=== PATIENT | female | born 1960 | race Caucasian/White ===

== ENCOUNTER 2017-10-23 11:33 | Day surgery (SDC) | payer BC, OTHER ==
[~2017-10-23] VITALS: Ht 157.5 cm; Wt 65.4 kg
[~2017-10-23 11:33] MED LIST: ASPI325B; ASPI81EC; ATOR40TA; BIRTHCONTROL; BUPR150T2; CALCIUM PO; CEPH250SUA PO; CHLCLI; CITA20 PO; CLON.5; CLON1 PO; CYAN500; CYCL10 PO; Cardizem Cd180 MG PO; DIAZ2; DILT360ER; DIPY75 PO; FISH1000; GLUC500; GLUCHON; HYDACE10B PO; HYDACE5; HYDACE5 PO; HYDMOR2 PO; ISOMON60ER PO; ISOSORBIDE MONONITRA PO; LAMO100 PO; LOSA50 PO; LOVA20 PO; LOVA40; MAGCIT300 PO; META800 PO; MSM1000; NAPR500 PO; NIAC500ER; NIFE30ER; NIFE90ER; NITR.3TP TOP; NITR.4SL; NITR.4SL SL; NITRSPRAY SL; OLAN2.5; OMEP20ER; OMEP20ER PO; ONDA4 PO; ONDA4ODT MM; OXYC5 PO; PANT40; PERCOCET 10/325MG PO; PIOG15 PO; RXHYDACE PO; SIMV20 PO; SIMV40 PO; URSO300 PO; VICODIN PO; VITAMIN B 1 PO; VITAMIN D
[2017-10-23] MEDS ORDERED: BUSP10 PO (12:31)
[2017-10-23] MEDS ORDERED: HYDHCL25 PO (12:32)
[2017-10-23] MEDS ORDERED: MIRT15 PO (12:32)
[2018-07-23] MEDS ORDERED: Isosorbide Mono60 MG PO (10:26)
[2018-07-23] MEDS ORDERED: LOSARTAN POTAS100 MG PO (10:56)
[2018-07-23] MEDS ORDERED: OMEPRAZOLE MAGN20 MG PO (11:01)
[2018-07-23] MEDS ORDERED: ATOR10 PO (11:02)
== END 2017-10-23 13:33 | disposition home or self-care (01) ==
LOC: ORSCSDS 11:33
PROVIDERS: Internal Medicine Gastroenterology
PROC: 0DB68ZX Excision of Stomach, Via Natural or Artificial Opening Endoscopic, Diagnostic (ICD-10-PCS; principal; 2017-10-23 12:45)
DX: R10.9 Unspecified abdominal pain (principal); G47.33 Obstructive sleep apnea (adult) (pediatric); K22.4 Dyskinesia of esophagus; K91.1 Postgastric surgery syndromes; I10 Essential (primary) hypertension; I20.1 Angina pectoris with documented spasm; F41.8 Other specified anxiety disorders; I25.2 Old myocardial infarction; E03.9 Hypothyroidism, unspecified; E78.5 Hyperlipidemia, unspecified; Z98.84 Bariatric surgery status; F17.210 Nicotine dependence, cigarettes, uncomplicated; Z79.899 Other long term (current) drug therapy
CPT/HCPCS: 88305; 88342; J2250; J7120

== ENCOUNTER 2018-01-22 01:59 | Emergency (ER) | payer BC, OTHER ==
[~2018-01-22] VITALS: Ht 157.5 cm; Wt 67.6 kg
[~2018-01-22 01:59] MED LIST changes: +BUSP10 PO; -Cardizem Cd180 MG PO; +DILT300 PO; +HYDHCL25 PO; +MIRT15 PO
== END 2018-01-22 05:15 | disposition home or self-care (01) ==
LOC: ER 01:59
DX: T74.11XA Adult physical abuse, confirmed, initial encounter (principal); S80.01XA Contusion of right knee, initial encounter; Y04.2XXA Assault by strike against or bumped into by another person, initial encounter; Z88.5 Allergy status to narcotic agent; Z88.8 Allergy status to other drugs, medicaments and biological substances; Z88.0 Allergy status to penicillin; Z79.899 Other long term (current) drug therapy; F17.200 Nicotine dependence, unspecified, uncomplicated
CPT/HCPCS: 73562-RT; J1885

== ENCOUNTER → 2018-03-03 | Outpatient (CLI) | payer BC, OTHER | END | disposition home or self-care (01) | LOC: LAB 11:28 → LAB FUT 02-20 15:10 | DX: R19.7 Diarrhea, unspecified (principal) | CPT/HCPCS: 87493 ==

== ENCOUNTER → 2022-03-13 | Outpatient (CLI) | payer BC, OTHER ==
[~2022-03-13] MED LIST changes: +ATOR10 PO; +Cardizem Cd180 MG PO; -DILT300 PO; +Isosorbide Mono60 MG PO; +LOSARTAN POTAS100 MG PO; +OMEPRAZOLE MAGN20 MG PO
[2022-03-13 14:43] LABS: Adenovirus F 40/41 Not Detected (NOT DETECT); Astrovirus Not Detected (NOT DETECT); Campylobacter Sp Detected (NOT DETECT); Cryptosporidium Not Detected (NOT DETECT); Cyclospora Cayetanensis Not Detected (NOT DETECT); E. Coli O157 Not Detected (NOT DETECT); Entamoeba Histolytica Not Detected (NOT DETECT); Enteroaggregative E. coli-EAEC Not Detected (NOT DETECT); Enteropathogenic E. coli-EPEC Not Detected (NOT DETECT); Enterotoxigenic E. coli-ETEC Not Detected (NOT DETECT); Giardia Lamblia Not Detected (NOT DETECT); Norovirus GI/GII Not Detected (NOT DETECT); Plesiomonas Shigelloides Not Detected (NOT DETECT); Rotavirus A Not Detected (NOT DETECT); Salmonella Sp Not Detected (NOT DETECT); Sapovirus Not Detected (NOT DETECT); Shiga Toxin-prod E. coli-STEC Not Detected (NOT DETECT); Shigella/Enteroin E. coli-EIEC Not Detected (NOT DETECT); Vibrio Cholerae Not Detected (NOT DETECT); Vibrio Sp Not Detected (NOT DETECT); Yersinia Enterocolitica Not Detected (NOT DETECT)
== END | disposition home or self-care (01) ==
LOC: LAB 11:20 → LAB SHORT 11:20
PROVIDERS: Physician Assistant
DX: R19.7 Diarrhea, unspecified (principal)
CPT/HCPCS: 87507

== ENCOUNTER → 2022-03-13 | Outpatient (CLI) | payer BC, OTHER ==
[2022-03-13 10:12] LABS: Hematocrit 39.4 % (33.0-51.0); Hemoglobin 13.4 g/dL (11.5-16.0); Mean Corpuscular HGB 32.2 pg (26.0-34.0); Mean Corpuscular Volume 95 fL (80-100); Mean Platelet Volume 9.7 fL (9.1-12.4); Platelet Count 183 K/mm3 (150-400); RDW Coefficient Variation 14.6 % (11.7-14.2); RDW Standard Deviation 50.8 fL (35.1-46.3); Red Blood Cell Count 4.16 M/mm3 (3.80-5.20); White Blood Cell Count 7.58 K/mm3 (4.00-11.30)
[2022-03-13 10:22] LABS: Albumin/Globulin Ratio 0.8 (0.8-1.8); Bilirubin, Total 0.5 mg/dL (0.1-1.0); Bun/Creatinine Ratio 11.4 (12.0-20.0); Calcium, Blood 9.2 mg/dL (8.5-10.1); Creatinine, Blood 1.32 mg/dL (0.40-1.00); Globulin, Blood 3.7 g/dL (2.2-4.0); Potassium, Blood 3.3 mmol/L (3.5-5.5); Total Protein, Blood 6.7 g/dL (6.4-8.2)
[2022-03-13 10:34] LABS: BAND PERCENT MAN 41 % (0-8); BASOPHILS PERCENT MAN 0 % (0-2); EOSINOPHILS PERCENT MAN 0 % (0-6); LYMPHOCYTES ABSOLUTE MAN 1.66 K/mm3 (0.84-5.20); LYMPHOCYTES PERCENT MAN 22 % (21-46); MONOCYTES ABSOLUTE MAN 1.28 K/mm3 (0.16-1.47); MONOCYTES PERCENT MAN 17 % (4-13); NEUTROPHILS ABSOLUTE MAN 4.62 K/mm3 (1.96-9.15); SEG NEUTROPHILS PERCENT MAN 20 % (41-73); TOTAL CELLS COUNTED 100
== END | disposition home or self-care (01) ==
LOC: LAB 10:07 → LAB SHORT 10:07
PROVIDERS: Physician Assistant
DX: R10.9 Unspecified abdominal pain (principal); R31.9 Hematuria, unspecified
CPT/HCPCS: 80053; 83690; 85025; 87086

== ENCOUNTER → 2023-12-23 | Outpatient (CLI) | payer BC, OTHER ==
[2023-12-23 19:37] LABS: BASOPHILS ABSOLUTE AUTO 0.04 K/mm3 (0.00-0.23); BASOPHILS PERCENT AUTO 1 % (0-2); EOSINOPHILS ABSOLUTE AUTO 0.11 K/mm3 (0.00-0.68); EOSINOPHILS PERCENT AUTO 2 % (0-6); Hematocrit 34.8 % (33.0-51.0); Hemoglobin 10.7 g/dL (11.5-16.0); IMMATURE GRAN ABSOLUTE AUTO 0.02 K/mm3 (0.00-0.10); IMMATURE GRAN PERCENT AUTO 0 % (0-1); LYMPHOCYTES ABSOLUTE AUTO 2.08 K/mm3 (0.84-5.20); LYMPHOCYTES PERCENT AUTO 35 % (21-46); MONOCYTES ABSOLUTE AUTO 0.71 K/mm3 (0.16-1.47); MONOCYTES PERCENT AUTO 12 % (4-13); Mean Corpuscular HGB 26.5 pg (26.0-34.0); Mean Corpuscular HGB Conc 30.7 g/dL (31.5-36.5); Mean Corpuscular Volume 86 fL (80-100); Mean Platelet Volume 10.8 fL (9.1-12.4); NEUTROPHILS ABSOLUTE AUTO 3.05 K/mm3 (1.96-9.15); NEUTROPHILS PERCENT AUTO 51 % (41-73); Platelet Count 176 K/mm3 (150-400); RDW Coefficient Variation 26.5 % (11.7-14.2); RDW Standard Deviation 78.6 fL (35.1-46.3); Red Blood Cell Count 4.04 M/mm3 (3.80-5.20); White Blood Cell Count 6.01 K/mm3 (4.00-11.30)
[2023-12-24 12:18] LABS: Stool Occult Bld Immuno 1 Negative (NEGATIVE)
[2023-12-25 11:09] LABS: FERRITIN 22 ng/mL (15-150)
[2023-12-25 22:10] LABS: IRON BIND.CAP.(TIBC) 449 ug/dL (250-450); IRON SATURATION 5 % (15-55); IRON, SERUM 24 ug/dL (27-139); UIBC 425 ug/dL (118-369)
== END | disposition home or self-care (01) ==
LOC: LAB 15:25 → LAB SHORT 15:25
PROVIDERS: Family Medicine
DX: D50.9 Iron deficiency anemia, unspecified (principal)
CPT/HCPCS: 82274; 82607; 82728; 82746; 83540; 83550; 85025

== ENCOUNTER → 2023-12-24 | Outpatient (CLI) | payer BC, OTHER ==
[2023-12-25 23:10] LABS: IRON BIND.CAP.(TIBC) 402 ug/dL (250-450); IRON SATURATION 8 % (15-55); IRON, SERUM 34 ug/dL (27-139); UIBC 368 ug/dL (118-369)
[2023-12-26 00:10] LABS: FERRITIN 28 ng/mL (15-150)
== END | disposition home or self-care (01) ==
LOC: LAB 12:00 → LAB SHORT 12:00
PROVIDERS: Family Medicine
DX: D50.9 Iron deficiency anemia, unspecified (principal)
CPT/HCPCS: 82728; 83540; 83550

== ENCOUNTER → 2024-08-27 | Outpatient (CLI) | payer BC, OTHER ==
[2024-08-27 16:14] LABS: BASOPHILS ABSOLUTE AUTO 0.05 K/mm3 (0.00-0.23); BASOPHILS PERCENT AUTO 1 % (0-2); EOSINOPHILS ABSOLUTE AUTO 0.11 K/mm3 (0.00-0.68); EOSINOPHILS PERCENT AUTO 2 % (0-6); Hematocrit 43.6 % (33.0-51.0); IMMATURE GRAN ABSOLUTE AUTO 0.01 K/mm3 (0.00-0.10); IMMATURE GRAN PERCENT AUTO 0 % (0-1); LYMPHOCYTES PERCENT AUTO 34 % (21-46); MONOCYTES PERCENT AUTO 10 % (4-13); Mean Corpuscular HGB 37.2 pg (26.0-34.0); Mean Corpuscular HGB Conc 34.4 g/dL (31.5-36.5); Mean Corpuscular Volume 108 fL (80-100); Mean Platelet Volume 11.2 fL (9.1-12.4); NEUTROPHILS ABSOLUTE AUTO 2.61 K/mm3 (1.96-9.15); NEUTROPHILS PERCENT AUTO 53 % (41-73); Platelet Count 124 K/mm3 (150-400); RDW Coefficient Variation 12.4 % (11.7-14.2); RDW Standard Deviation 49.8 fL (35.1-46.3); Red Blood Cell Count 4.03 M/mm3 (3.80-5.20); White Blood Cell Count 4.98 K/mm3 (4.00-11.30)
[2024-08-28 14:46] LABS: ERYTHROPOIETIN 17 mU/mL (4-27)
== END ==
LOC: LAB 15:02 → LAB SHORT 15:02
PROVIDERS: Nurse Practitioner Family
DX: D64.9 Anemia, unspecified (principal)
CPT/HCPCS: 82607; 82668; 82746; 83540; 83550; 85025

== ENCOUNTER 2024-12-08 12:42 | Day surgery (SDC) | payer OTHER ==
[~2024-12-08] VITALS: Ht 154.9 cm; Wt 71.8 kg
[~2024-12-08 12:42] MED LIST changes: +Atropine Sulfate 0.1 MG/ML 10ML SYR ONE; +BREZTRI AEROS10.7 GM INH; +DIAZ5 PO; +Glycopyrrolate 0.2 MG/ML 1MLVIAL ONE; +Lidocaine 2% 5 ML SDV ONE; +Lidocaine HCl/Pf 1% 5 ML VIAL ONE; +Methylene Blue 1% 100 MG/10 ML VIAL ONE; +NITRO-DUR1 EAC1 TD; +Ondansetron HCl 2 MG / ML 2ML Vial ONE; +XOPENEX HFA15 GM INH; +ePHEDrine Sulfate 50 MG/ML 1ML Injection ONE
[2024-12-08] MEDS ORDERED: DODEX1000 MCG/3 (14:04)
[2024-12-08] MEDS ORDERED: XOPENEX HFA15 GM (14:05)
[2024-12-08] MEDS ORDERED: Benzocaine Oral Spray 0.5ML UD ONE (14:06)
[2024-12-08] MEDS ORDERED: propofoL 50 ML IV ONE ×2 (15:07→15:55)
[2024-12-08] MEDS ORDERED: Lactated Ringer's 1,000 ML IV ONE (15:17)
[2024-12-08 17:26] VITALS: BP 118/81
--- NOTE | 2024-12-08 17:32 | NUR ---
12/08/241731 Carol العلي PT IS SITTING UP IN BED DRINKING APPLE JUICE W/O DIFFICULTY AND SPEAKING TO HER SILVIA. PT DENIES PAIN, DIZZINESS, OR SOB, AND STATED SHE IS READY TO GO EAT. PT DRESSED IN ROOM ON HER OWN WITH HER IN THE ROOM AND THIS RN WHEELED PT OUT TO HER CAR WHERE PT PICKED PT UP.
--- NOTE | 2024-12-08 18:06 | NUR ---
12/08/24 1806 SeverianoCarol UPPER ENDOSCOPY STARTED BY AT 1527. PT OXYGEN SATS STARTED DROPPING IN THE 80'S. THIS RN STARTED A CHIN LIFT, PT SATS CONTINUED TO DROP REACHING IN THE 70'S, PLACED AN LMA AND USED THE AMBU BAG. PT OXYGEN SATS RISING BACK INTO THE 90'S. PT OPENED HER EYES AND LMA WAS REMOVED. PT BREATHING ON HER OWN WITH POM MASK ON SET AT 10L O2. PT O2 SATS BACK INTO THE UPPER 90'S. RESTARTED THE UPPER ENDOSCOPY AT 1536 WITHOUT COMPLICATIONS. COLONOSCOPY WAS COMPLETED W/O COMPLICATIONS. PT AWOKE AT 1635.
== END 2024-12-08 17:20 | disposition home or self-care (01) ==
LOC: ORSCSDS 12:42
PROVIDERS: Internal Medicine Gastroenterology
PROC: 0DBN8ZX Excision of Sigmoid Colon, Via Natural or Artificial Opening Endoscopic, Diagnostic (ICD-10-PCS; principal; 2024-12-08 14:15)
PROC: 0DBL8ZX Excision of Transverse Colon, Via Natural or Artificial Opening Endoscopic, Diagnostic (ICD-10-PCS; principal; 2024-12-08 14:15)
PROC: 0DBH8ZX Excision of Cecum, Via Natural or Artificial Opening Endoscopic, Diagnostic (ICD-10-PCS; principal; 2024-12-08 14:15)
PROC: 0DB78ZX Excision of Stomach, Pylorus, Via Natural or Artificial Opening Endoscopic, Diagnostic (ICD-10-PCS; principal; 2024-12-08 14:15)
PROC: 0DBM8ZX Excision of Descending Colon, Via Natural or Artificial Opening Endoscopic, Diagnostic (ICD-10-PCS; principal; 2024-12-08 14:15)
DX: R10.31 Right lower quadrant pain (principal); D50.9 Iron deficiency anemia, unspecified; D12.3 Benign neoplasm of transverse colon; D12.0 Benign neoplasm of cecum; D12.4 Benign neoplasm of descending colon; D12.5 Benign neoplasm of sigmoid colon; Z80.0 Family history of malignant neoplasm of digestive organs; Z98.84 Bariatric surgery status; Z86.0100 Personal history of colon polyps, unspecified; F50.83 Pica in adults; I12.9 Hypertensive chronic kidney disease with stage 1 through stage 4 chronic kidney disease, or unspecified chronic kidney disease; N18.30 Chronic kidney disease, stage 3 unspecified; J44.9 Chronic obstructive pulmonary disease, unspecified; E78.5 Hyperlipidemia, unspecified; F31.9 Bipolar disorder, unspecified; F41.9 Anxiety disorder, unspecified; F43.10 Post-traumatic stress disorder, unspecified; Z79.899 Other long term (current) drug therapy; F17.210 Nicotine dependence, cigarettes, uncomplicated; G47.33 Obstructive sleep apnea (adult) (pediatric)
CPT/HCPCS: 88305; 88342; A9270; J0461; J2003; J2405; J2704; Q9968

== ENCOUNTER 2025-08-02 07:04 | Day surgery (SDC) | payer OTHER ==
[2025-08-02] VITALS (9 sets, daily range): BP systolic 108–137; BP diastolic 66–87
[~2025-08-02] VITALS: Ht 152.4 cm; Wt 73.8 kg
[~2025-08-02 07:04] MED LIST changes: -Atropine Sulfate 0.1 MG/ML 10ML SYR ONE; +DODEX1000 MCG/3; -Glycopyrrolate 0.2 MG/ML 1MLVIAL ONE; +LAMO25; -Lidocaine 2% 5 ML SDV ONE; -Lidocaine HCl/Pf 1% 5 ML VIAL ONE; -Methylene Blue 1% 100 MG/10 ML VIAL ONE; -Ondansetron HCl 2 MG / ML 2ML Vial ONE; +XOPENEX HFA15 GM; -ePHEDrine Sulfate 50 MG/ML 1ML Injection ONE
[2025-08-02] MEDS ORDERED: CeFAZolin Sodium 2,000 MG in NS 100 ML IV SCH (08:00)
[2025-08-02] MEDS ORDERED: Dexamethasone Sod Phos 10 MG/ML 1ML VIAL ONE (08:00)
[2025-08-02] MEDS ORDERED: FentaNYL Citrate 50 MCG/ML 2 ML Injection ONE ×2 (08:00→11:42)
[2025-08-02] MEDS ORDERED: Ondansetron HCl 2 MG / ML 2ML Vial ONE (08:00)
[2025-08-02] MEDS ORDERED: Metoclopramide HCl 5MG / ML 2ML Vial IV ONE (08:15)
[2025-08-02] MEDS ORDERED: Citric Acid/Sodium Citrate 30 ML BTL PO ONE (08:15)
[2025-08-02] MEDS ORDERED: Bupivacaine 0.5% Inj 10 ML Vial ONE ×3 (10:06→11:38)
[2025-08-02] MEDS ORDERED: LOSARTAN POTAS100 M1 PO (10:26)
[2025-08-02] MEDS ORDERED: GABAPENTIN600 MG PO (10:26)
[2025-08-02] MEDS ORDERED: Phenergan25 M1 PO (10:28)
[2025-08-02] MEDS ORDERED: ePHEDrine Sulfate 50 MG/ML 1ML Injection ONE (10:49)
[2025-08-02] MEDS ORDERED: Phenylephrine HCl 100 MCG/ML-NS 10MLSYR (1MG/10ML) ONE (11:11)
[2025-08-02] MEDS ORDERED: HYDROmorphone HCl/Pf 1MG SYR IV PRN ×2 (11:25→11:30)
[2025-08-02] MEDS ORDERED: HydrALAZINE HCl 20 MG / ML 1ML Vial IV PRN (11:25)
[2025-08-02] MEDS ORDERED: FentaNYL Citrate 50 MCG/ML 2 ML Injection IV PRN ×2 (11:30)
[2025-08-02] MEDS ORDERED: ePHEDrine Sulfate 50 MG/ML 1ML Injection IV PRN (11:30)
[2025-08-02] MEDS ORDERED: Ondansetron HCl 2 MG / ML 2ML Vial IV PRN (11:30)
[2025-08-02] MEDS ORDERED: Midazolam HCl 1MG / ML 2ML Vial ONE (11:41)
[2025-08-02] MEDS ORDERED: HYDROcodone 5-APAP 325 TAB PO PRN (12:30)
--- NOTE | 2025-08-02 13:39 | NUR ---
Patient up to Ambulate independently. Gait steady. Discharge instructions reviewed with patient. Patient verbalizes understanding. Copy given to patient to take home, [facility]. Patient States Post-Procedure ride home has been arranged. Discharged via wheelchair to private car for ride home. PT REPORTS PAIN TOLERABLE. TOLERATING PO. DRESSINGS C/D/I. REPORTS READY TO GO HOME.
== END 2025-08-02 13:40 | disposition home or self-care (01) ==
LOC: ORSCMMR 07:04 → ORD 08:30 → ORSCMMR 13:40
PROVIDERS: Surgery
PROC: B544ZZA Ultrasonography of Left Jugular Veins, Guidance (ICD-10-PCS; principal; 2025-08-02 10:30)
PROC: 05HN33Z Insertion of Infusion Device into Left Internal Jugular Vein, Percutaneous Approach (ICD-10-PCS; principal; 2025-08-02 10:30)
PROC: 0JH63WZ Insertion of Totally Implantable Vascular Access Device into Chest Subcutaneous Tissue and Fascia, Percutaneous Approach (ICD-10-PCS; principal; 2025-08-02 10:30)
DX: C83.09 Small cell B-cell lymphoma, extranodal and solid organ sites (principal); I12.9 Hypertensive chronic kidney disease with stage 1 through stage 4 chronic kidney disease, or unspecified chronic kidney disease; N18.9 Chronic kidney disease, unspecified; K21.9 Gastro-esophageal reflux disease without esophagitis; I25.10 Atherosclerotic heart disease of native coronary artery without angina pectoris; E78.5 Hyperlipidemia, unspecified; J44.9 Chronic obstructive pulmonary disease, unspecified; F17.210 Nicotine dependence, cigarettes, uncomplicated; Z79.899 Other long term (current) drug therapy; E66.9 Obesity, unspecified; Z68.33 Body mass index [BMI] 33.0-33.9, adult; F31.9 Bipolar disorder, unspecified; F43.10 Post-traumatic stress disorder, unspecified
CPT/HCPCS: 77001; A9270; C1788; J0690; J1100; J1642; J2250; J2371; J2405; J2704; J2765; J3010; J7120

== ENCOUNTER → 2025-08-11 | Outpatient (CLI) | payer OTHER ==
[~2025-08-11] MED LIST changes: +DICY20 PO; +GABAPENTIN600 MG PO; +LOSARTAN POTAS100 M1 PO; +Phenergan25 M1 PO
[2025-08-11 10:08] LABS: BASOPHILS ABSOLUTE AUTO 0.04 K/mm3 (0.00-0.23); BASOPHILS PERCENT AUTO 1 % (0-2); EOSINOPHILS ABSOLUTE AUTO 0.15 K/mm3 (0.00-0.68); EOSINOPHILS PERCENT AUTO 2 % (0-6); Hematocrit 40.2 % (33.0-51.0); Hemoglobin 14.5 g/dL (11.5-16.0); IMMATURE GRAN ABSOLUTE AUTO 0.09 K/mm3 (0.00-0.10); IMMATURE GRAN PERCENT AUTO 1 % (0-1); LYMPHOCYTES ABSOLUTE AUTO 0.49 K/mm3 (0.84-5.20); LYMPHOCYTES PERCENT AUTO 6 % (21-46); MONOCYTES ABSOLUTE AUTO 0.91 K/mm3 (0.16-1.47); MONOCYTES PERCENT AUTO 11 % (4-13); Mean Corpuscular HGB Conc 36.1 g/dL (31.5-36.5); Mean Corpuscular Volume 106 fL (80-100); NEUTROPHILS ABSOLUTE AUTO 6.54 K/mm3 (1.96-9.15); NEUTROPHILS PERCENT AUTO 80 % (41-73); NRBC ABSOLUTE 0.00 K/mm3 (0.00-0.02); NRBC Auto 0.0 /100 WBC (0.0-0.2); Platelet Count 142 K/mm3 (150-400); RDW Coefficient Variation 12.7 % (11.7-14.2); RDW Standard Deviation 48.8 fL (35.1-46.3)
[2025-08-11 10:23] LABS: Alanine Aminotransfer (ALT/SGP 66.0 U/L (12-78); Albumin, Blood 3.6 g/dL (3.4-5.0); Albumin/Globulin Ratio 0.8 (0.8-1.8); Anion Gap 13.0 mmol/L (6-16); Aspartate Aminotrans (AST/SGOT 30.0 U/L (12-37); Bilirubin, Total 1.2 mg/dL (0.1-1.0); Blood Urea Nitrogen 16.0 mg/dL (8-24); CO2, Blood 26.0 mmol/L (21-32); Calcium, Blood 9.5 mg/dL (8.5-10.1); Chloride, Blood 102.0 mmol/L (98-108); Creatinine, Blood 0.9 mg/dL (0.40-1.00); Globulin, Blood 4.3 g/dL (2.2-4.0); Glucose, Blood 116.0 mg/dL (70-99); Potassium, Blood 4.2 mmol/L (3.5-5.5); Sodium, Blood 137.0 mmol/L (136-145); Total Protein, Blood 7.9 g/dL (6.4-8.2)
[2025-08-11 10:41] LABS: BASOPHILS ABSOLUTE MAN 0.08 K/mm3 (0.00-0.23); BASOPHILS PERCENT MAN 1 % (0-2); EOSINOPHILS ABSOLUTE MAN 0.00 K/mm3 (0.00-0.68); EOSINOPHILS PERCENT MAN 0 % (0-6); LYMPHOCYTES ABSOLUTE MAN 0.49 K/mm3 (0.84-5.20); LYMPHOCYTES PERCENT MAN 6 % (21-46); MONOCYTES ABSOLUTE MAN 0.90 K/mm3 (0.16-1.47); MONOCYTES PERCENT MAN 11 % (4-13); NEUTROPHILS ABSOLUTE MAN 6.74 K/mm3 (1.96-9.15); SEG NEUTROPHILS PERCENT MAN 82 % (41-73)
== END ==
LOC: LAB 10:04 → LAB SHORT 10:04
PROVIDERS: Physician Assistant
DX: R10.31 Right lower quadrant pain (principal)
CPT/HCPCS: 80053; 83690; 85025

== ENCOUNTER 2025-08-18 00:08 | Emergency (ER) | payer OTHER ==
[~2025-08-18] VITALS: Ht 152.4 cm; Wt 73.9 kg
[~2025-08-18 00:08] MED LIST changes: -DICY20 PO
[2025-08-18] MEDS ORDERED: Ketorolac Tromethamine 30mg Vial IV ONE (00:45)
[2025-08-18 00:48] LABS: Source, Urine Clean Catch
[2025-08-18 00:54] LABS: Bilirubin, Urine Neg (Neg); Glucose Qualitative, Urine Neg (Neg); Ketones, Urine Neg (Neg); Leukocyte Esterase, Urine Neg (Neg); Protein, Urine 2+ (Neg); Specific Gravity, Urine 1.010 (1.003-1.022); Urobilinogen, Urine NORM (Normal)
[2025-08-18 01:04] LABS: Color, Urine Pale Yellow (P-Yellow)
[2025-08-18 01:05] LABS: Red Blood Cells, Urine 0-2 /hpf (0-2); White Blood Cells, Urine 0-2 /hpf (0-5)
[2025-08-18 01:12] LABS: Hematocrit 36.9 % (33.0-51.0); Hemoglobin 13.0 g/dL (11.5-16.0); Mean Corpuscular HGB Conc 35.2 g/dL (31.5-36.5); Mean Corpuscular Volume 110 fL (80-100); NRBC ABSOLUTE 0.00 K/mm3 (0.00-0.02); NRBC Auto 0.0 /100 WBC (0.0-0.2); Platelet Count 99 K/mm3 (150-400); RDW Coefficient Variation 13.2 % (11.7-14.2); RDW Standard Deviation 53.1 fL (35.1-46.3)
[2025-08-18 01:28] LABS: Magnesium, Blood 2.3 mg/dL (1.6-2.4)
[2025-08-18 01:38] LABS: Alanine Aminotransfer (ALT/SGP 36.0 U/L (12-78); Albumin, Blood 3.3 g/dL (3.4-5.0); Albumin/Globulin Ratio 0.9 (0.8-1.8); Anion Gap 9.0 mmol/L (3-11); Aspartate Aminotrans (AST/SGOT 26.0 U/L (12-37); Bilirubin, Total 0.5 mg/dL (0.1-1.0); Blood Urea Nitrogen 14.0 mg/dL (8-24); CO2, Blood 22.0 mmol/L (21-32); Calcium, Blood 9.0 mg/dL (8.5-10.1); Chloride, Blood 105.0 mmol/L (98-108); Creatinine, Blood 1.38 mg/dL (0.40-1.00); Globulin, Blood 3.6 g/dL (2.2-4.0); Glucose, Blood 96.0 mg/dL (70-99); Potassium, Blood 4.1 mmol/L (3.5-5.5); Sodium, Blood 132.0 mmol/L (136-145); Total Protein, Blood 6.9 g/dL (6.4-8.2)
[2025-08-18 01:39] LABS: BAND PERCENT MAN 4 % (0-8); BASOPHILS ABSOLUTE MAN 0.04 K/mm3 (0.00-0.23); BASOPHILS PERCENT MAN 1 % (0-2); EOSINOPHILS ABSOLUTE MAN 0.21 K/mm3 (0.00-0.68); EOSINOPHILS PERCENT MAN 5 % (0-6); LYMPHOCYTES ABSOLUTE MAN 0.50 K/mm3 (0.84-5.20); LYMPHOCYTES PERCENT MAN 12 % (21-46); MONOCYTES ABSOLUTE MAN 0.21 K/mm3 (0.16-1.47); MONOCYTES PERCENT MAN 5 % (4-13); NEUTROPHILS ABSOLUTE MAN 3.24 K/mm3 (1.96-9.15); SEG NEUTROPHILS PERCENT MAN 73 % (41-73)
[2025-08-18 02:45] VITALS: BP 110/76
[2025-08-18] MEDS ORDERED: DICY20 PO (02:45)
== END 2025-08-18 03:00 | disposition home or self-care (01) ==
LOC: ER 00:08
PROVIDERS: Emergency Medicine
DX: R10.11 Right upper quadrant pain (principal); R10.31 Right lower quadrant pain; C85.90 Non-Hodgkin lymphoma, unspecified, unspecified site; E78.5 Hyperlipidemia, unspecified; G47.30 Sleep apnea, unspecified; I10 Essential (primary) hypertension; F17.200 Nicotine dependence, unspecified, uncomplicated; Z98.84 Bariatric surgery status; Z95.0 Presence of cardiac pacemaker; Z79.899 Other long term (current) drug therapy
CPT/HCPCS: 71260; 74177; 80053; 81001; 83605; 83690; 83735; 85025; 96374-59; 99284-25; J1885; Q9967